=== PATIENT | female | born 1955 | race Caucasian/White ===

== ENCOUNTER 2017-01-23 08:15 | Outpatient (CLI) | payer OTHER | END 2017-01-23 08:16 | disposition home or self-care (01) | DX: M85.9 Disorder of bone density and structure, unspecified (principal); Z78.0 Asymptomatic menopausal state ==

== ENCOUNTER 2017-08-05 10:01 | Outpatient (CLI) | payer OTHER ==
--- NOTE | 2017-08-06 15:34 | Mammography Report ---
DIGITAL SCREENING MAMMOGRAM: 08/05/2017 CLINICAL INDICATION: A 62-year-old nulliparous patient with history of benign cyst excision for scre ening. COMPARISON: 04/2016, 03/2015, 03/2014, 02/2013, 12/2011, 11/2010, 11/2009 TECHNIQUE: Routine CC and MLO projections were obtained of the breasts. FINDINGS: The breasts again demonstrate scattered fibroglandular densities bilaterally. Coarse and punctate, typically benign calcifications are present. No suspicious masses, clustered microcalcific ations, or regions of architectural distortion are identified. IMPRESSION: BENIGN FINDINGS. RECOMMENDATION: Routine annual screening unless otherwise clinically indicated. BIRADS CATEGORY 2 - BENIGN FINDINGS. STANDARD QUALIFYING STATEMENTS 1. This examination was reviewed with the aid of Computer-Aided Detection (CAD). 2. A negative or benign imaging report should not delay biopsy if clinically suspicious findings are present. Consider surgical consultation if warranted. More than 5% of cancers are not identified by i maging. 3. Dense breasts may obscure an underlying neoplasm. JOB #: [id number] EXT JOB #:[id number]
== END 2017-08-05 10:02 | disposition home or self-care (01) ==
LOC: DI 10:01
PROVIDERS: ATTEND Obstetrics & Gynecology
DX: Z12.39 Encounter for other screening for malignant neoplasm of breast (principal)
CPT/HCPCS: 77067

== ENCOUNTER 2017-09-20 04:44 | Emergency (ER) | payer OTHER ==
[2017-09-20 04:55] VITALS: BP 155/78
--- NOTE | 2017-09-20 05:25 | ED Physician Documentation ---
PD HPI ANIMAL BITE - Stated complaint Stated Complaint: DOG BITE - Chief complaint Chief Complaint: Laceration - History obtained from History obtained from: Patient - History of Present Illness Location of injury(ies): Right hand Details of the event: Dog Timing - onset: Enter time (21:00) Timing - details: Abrupt onset Improved by: Rest Worsened by: Moving, Palpating Associated symptoms: Swelling Similar symptoms before: Has not had sx before Recently seen: Not recently seen - Additional information Additional information: patient was her dogs when they were fighting, patient was bitten by one of the dogs to her right second finger. she is right hand dominant. did not present until this time because she did not think the injury warranted emergent evaluation. 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 Neuro: Other - Present Medications Home Medications: Ambulatory Orders Medication Instructions Recorded Confirmed Cholecalciferol (Vitamin D3) 1,000 unit PO DAILY 10/03/15 09/20/17 [Vitamin D3] Amox/Clav 875/125 [Augmentin] 1 each PO Q12H #13 tablet 09/20/17 Hydrocodone/Acetaminophen 1 each PO Q6HR PRN #14 tablet 09/20/17 [Hydrocodone-Acetamin 5-325 mg] LORazepam [Ativan] 1 tab PO PRN PRN 09/20/17 09/20/17 raNITIdine [Zantac] 1 tab PO PRN PRN 09/20/17 09/20/17 - Allergies Allergies/Adverse Reactions: Allergies Allergy/AdvReac Type Severity Reaction Status Date / Time cephalexin monohydrate * Allergy Unknown Rash Verified 09/20/17 04:55 [From Keflex] Sulfa (Sulfonamide Allergy Unknown Rash Verified 09/20/17 04:55 Antibiotics) azithromycin Allergy Rash Verified 09/20/17 04:55 [From Zithromax Z-Antwan] - Social History Does the pt smoke?: No Smoking Status: Never smoker Does the pt drink ETOH?: No Does the pt have substance abuse?: No - Immunizations Immunizations are current?: Yes - POLST Patient has POLST: No PD ED PE NORMAL - Vitals Vital signs reviewed: Yes - General General: Alert and oriented X 3, No acute distress, Well developed/nourished - Neuro Neuro: No motor deficit, No sensory deficit PD ED PE EXPANDED - Extremities Extremities: Tenderness, Swelling, Laceration LISANDRA UE/Hands Visual: 1 - bruising, swelling, tenderness 2 - laceration 3 - laceration Results - Vitals Vitals: Vital Signs - 24 hr 09/20/17 04:50 Temperature 36.8 C Heart Rate 70 Respiratory 18 Rate Blood Pressure 155/78 H O2 Saturation 100 Oxygen O2 Source Room air - Rads (name of study) right second digit xrays Radiology: Prelim report reviewed, See rad report PD MEDICAL DECISION MAKING - ED course Complexity details: reviewed results, re-evaluated patient, considered differential, d/w patient ED course: The edges of the laceration are well approximated without intervention, and do not open easily, widely, or deeply with traction. Considering this, and the delayed presentation to the emergency department, these lacerations were reinforced with Steri-Strips, but not glued nor sutured. Patient thinks she was last updated with tetanus immunization in 2007, but she was given a booster today in the emergency department due to the tetanus-prone nature of a crush injury, as well as animal bite. Departure - Departure Disposition: 01 Home, Self Care Clinical Impression: Dog bite Condition: Good Instructions: ED Bite Animal General Follow-Up: Cl Cuadra MD [Provider Admit Priv/Credential] - (2-3 days for recheck of wound) Prescriptions: Hydrocodone/Acetaminophen [Hydrocodone-Acetamin 5-325 mg] 1 each PO Q6HR PRN # 14 tablet PRN Reason: Pain Amox/Clav 875/125 [Augmentin] 1 each PO Q12H #13 tablet Discharge Date/Time: 09/20/17 07:57
[2017-09-20] MEDS ORDERED: IBUPROFEN 600 MG TABLET PO STA (06:03)
[2017-09-20] MEDS ORDERED: AMOX/CLAV 875 MG/125 MG TABLET PO STA (06:03)
[2017-09-20] MEDS ORDERED: AMOX/CLAV 875 MG/125 MG TABLET PO ONE (06:16)
[2017-09-20] MEDS ORDERED: IBUPROFEN 600 MG TABLET PO ONE (06:16)
--- NOTE | 2017-09-20 06:37 | XRAY Preliminary Report ---
Exam: XR FINGER(S) RT IMPRESSION: No acute bony abnormality. [facility] SITE ID: [id number]
--- NOTE | 2017-09-20 06:40 | XRAY Report ---
EXAM: RIGHT Digit Radiography EXAM DATE: 09/20/2017 06:27 AM. CLINICAL HISTORY: Crush injury (dog bite). COMPARISON: None. TECHNIQUE: 3 views. FINDINGS: Bones: No displaced acute fracture demonstrated. Joints: There is no evidence of dislocation. Soft Tissues: Soft tissue swelling is noted of the index finger. IMPRESSION: No acute bony abnormality. [facility] Referring Provider Line: [phone] SITE ID: [id number]
[2017-09-20] MEDS ORDERED: HYDROcod/ACET 5/325 Prepack 6 PO STA (07:22)
[2017-09-20] MEDS ORDERED: HYDROcod/ACET 5/325 Prepack 6 PO ONE (07:31)
[2017-09-20] MEDS ORDERED: TETANUS/DIPHTHERIA/PERTUSSIS 0.5 ML SYRINGE IM ONE ×2 (07:34→07:41)
== END 2017-09-20 07:57 | disposition home or self-care (01) ==
LOC: ED 04:44
DX: S61.210A Laceration without foreign body of right index finger without damage to nail, initial encounter (principal); W54.0XXA Bitten by dog, initial encounter; Y92.019 Unspecified place in single-family (private) house as the place of occurrence of the external cause; Z23 Encounter for immunization; E11.9 Type 2 diabetes mellitus without complications; M19.90 Unspecified osteoarthritis, unspecified site
CPT/HCPCS: 73140; 90471; 90715; 99283; A9270

== ENCOUNTER 2018-02-08 14:54 | Outpatient (CLI) | payer OTHER ==
--- NOTE | 2018-02-08 19:20 | XRAY Report ---
TWO VIEW RIGHT ELBOW: 02/08/2018 CLINICAL INDICATION: Joint pain. FINDINGS: AP, lateral, and oblique views of the right elbow demonstrate no evidence of fracture or dislocation. The joint spaces are preserved. No effusion is present. IMPRESSION: NORMAL RIGHT ELBOW. TD: 02/08/2018 19:19
== END 2018-02-08 14:55 | disposition home or self-care (01) ==
LOC: DI 14:54
PROVIDERS: ATTEND Internal Medicine
DX: M25.521 Pain in right elbow (principal)

== ENCOUNTER 2018-02-10 08:25 | Outpatient (CLI) | payer OTHER ==
[2018-02-10 13:36] LABS: BASOPHILS % (AUTO) 0.6 %; EOSINOPHILS # (AUTO) 0.4 10^3/uL (0.0-0.7); EOSINOPHILS % (AUTO) 6.2 %; HGB - HEMOGLOBIN 14.4 g/dL (12.0-16.0); LYMPHOCYTES # (AUTO) 2.7 10^3/uL (1.5-3.5); LYMPHOCYTES % (AUTO) 38.2 %; MEAN CORPUSCULAR HEMOGLOBIN 29.3 pg (27.0-31.0); MEAN CORPUSCULAR HGB CONC 33.9 g/dL (32.0-36.0); MEAN CORPUSCULAR VOLUME 86.5 fL (81.0-99.0); MEAN PLATELET VOLUME 8.8 fL (7.9-10.8); MONOCYTES # (AUTO) 0.4 10^3/uL (0.0-1.0); MONOCYTES % (AUTO) 5.8 %; NEUTROPHILS # (AUTO) 3.5 10^3/uL (1.5-6.6); NEUTROPHILS % (AUTO) 49.2 %; PLT - PLATELET COUNT 242 10^3/uL (130-450); RED BLOOD COUNT 4.89 10^6/uL (4.20-5.40); RED CELL DISTRIBUTION WIDTH 12.8 % (12.0-15.0)
[2018-02-10 13:52] LABS: ALBUMIN 4.6 g/dL (3.2-5.5); ALBUMIN/GLOBULIN RATIO 1.8 (1.0-2.2); ALKALINE PHOSPHATASE 51 IU/L (42-121); ALT ALANINE AMINOTRANSFERASE 17 IU/L (10-60); AST ASPARTATE AMINOTRANSFERASE 26 IU/L (10-42); BILIRUBIN,TOTAL 0.4 mg/dL (0.2-1.0); BUN - BLOOD UREA NITROGEN 17 mg/dL (6-20); CARBON DIOXIDE - CO2 27 mmol/L (21-32); CHLORIDE 101 mmol/L (101-111); CHOL/HDL RATIO 3.6 (<4.4); CHOLESTEROL 235 mg/dL; CREATININE 0.7 mg/dL (0.4-1.0); GFR - MDRD 84 (>89); GLUCOSE 119 mg/dL (70-100); HDL CHOLESTEROL 66 mg/dL; LDL CHOLESTEROL,CALCULATED 141 mg/dL; LDL/HDL RATIO 2.1 (<4.4); SODIUM 135 mmol/L (135-145); TOTAL PROTEIN 7.2 g/dL (6.7-8.2); VLDL CHOLESTEROL 28 mg/dL
[2018-02-10 13:57] LABS: HB2 TOTAL 16.1 g/dL; HEMOGLOBIN A1C 0.7 g/dL; HEMOGLOBIN A1C % 6.1 % (4.6-6.2)
[2018-02-11 14:32] LABS: HEPATITIS C ANTIBODY NON-REACTIVE (NON-REACTIVE)
== END 2018-02-10 08:26 | disposition home or self-care (01) ==
LOC: LAB.R 08:25
PROVIDERS: ATTEND Internal Medicine
DX: E78.5 Hyperlipidemia, unspecified (principal); E11.65 Type 2 diabetes mellitus with hyperglycemia; Z79.899 Other long term (current) drug therapy; Z72.89 Other problems related to lifestyle
CPT/HCPCS: 80053; 80061; 83036; 83721; 85025; 86803

== ENCOUNTER 2018-08-03 23:02 | Outpatient (CLI) | payer MEDICARE | END 2018-08-03 23:03 | disposition home or self-care (01) | LOC: LAB.R 23:02 | PROVIDERS: ATTEND Internal Medicine | DX: J11.1 Influenza due to unidentified influenza virus with other respiratory manifestations (principal) | CPT/HCPCS: 87275; 87276 ==

== ENCOUNTER 2018-09-17 10:10 | Outpatient (CLI) | payer MEDICARE ==
[2018-09-17 12:55] LABS: HB2 TOTAL 15.9 g/dL; HEMOGLOBIN A1C 0.75 g/dL; HEMOGLOBIN A1C % 6.5 % (4.6-6.2)
== END 2018-09-17 23:59 ==
LOC: LAB.R 10:10
PROVIDERS: ATTEND Internal Medicine
DX: E88.81 Metabolic syndrome and other insulin resistance (principal)
CPT/HCPCS: 83036

== ENCOUNTER 2018-11-29 08:00 | Outpatient (CLI) | payer MEDICARE | END 2018-11-29 23:59 | disposition home or self-care (01) | LOC: LAB.R 08:00 | PROVIDERS: ATTEND Physician Assistant Medical | DX: R50.9 Fever, unspecified (principal); R05 Cough | CPT/HCPCS: 87275; 87276 ==

== ENCOUNTER 2018-11-29 11:32 | Outpatient (CLI) | payer MEDICARE ==
--- NOTE | 2018-11-29 12:52 | XRAY Report ---
Reason: COUGH Procedure Date: 11/29/2018 Accession Number: [id number] / [id number] Procedure: XR - Chest 2 View X-Ray CPT Code: 82181 FULL RESULT: EXAM: CHEST RADIOGRAPHY EXAM DATE: 11/29/2018 11:46 AM. CLINICAL HISTORY: COUGH. COMPARISON: XR CHEST PA AND LAT 12/06/2007 2:42 PM. TECHNIQUE: 2 views. FINDINGS: Lungs/Pleura: Minimal left lower lobe opacity partly linear in appearance. No vascular congestion. No pneumothorax. No pleural effusions. Mediastinum: Heart size is normal. Aorta is tortuous. Other: Degenerative changes of the thoracic spine. IMPRESSION: 1. Minimal left lower lobe partly linear opacity which may represent a small area of atelectasis versus early consolidation. [facility]
== END 2018-11-29 11:33 | disposition home or self-care (01) ==
LOC: DI 11:32
PROVIDERS: ATTEND Physician Assistant Medical
DX: R05 Cough (principal); R50.9 Fever, unspecified
CPT/HCPCS: 71046; 87275; 87276

== ENCOUNTER 2019-03-16 07:55 | Outpatient (CLI) | payer MEDICARE ==
--- NOTE | 2019-03-16 11:32 | Mammography Report ---
Reason: PREVENTIVE CARE Procedure Date: 03/16/2019 Accession Number: [id number] / [id number] Procedure: ZACH - Screening Mammo w/Sanjeev CPT Code: FULL RESULT: EXAM: Screening Mammo w/Sanjeev DATE: 03/16/2019 8:24 AM CLINICAL HISTORY: Routine screening TECHNIQUE: (B) - Bilateral CC and MLO views were obtained. COMPARISON: 08/05/2017, 05/16/2016, 04/02/2015 and 03/21/2014. PARENCHYMAL PATTERN: (A) - The breasts demonstrate scattered fibroglandular densities bilaterally. FINDINGS: No significant interval change. There are no suspicious masses, calcifications, or areas of distortion. IMPRESSION: Negative examination. BI-RADS category 1. RECOMMENDATION: (ANNUAL) - Recommend routine annual screening mammography. BI-RADS CATEGORY: (1) - Negative. STANDARD QUALIFYING STATEMENTS: 1. This examination was not reviewed with the aid of Computer-Aided Detection (CAD). 2. A negative or benign imaging report should not preclude biopsy if clinically suspicious findings are present. 3. Dense breasts may obscure an underlying neoplasm. 4. This examination was reviewed with the aid of 3D breast imaging (tomosynthesis).
== END 2019-03-16 07:56 | disposition home or self-care (01) ==
LOC: DI 07:55
PROVIDERS: ATTEND Registered Nurse
DX: Z12.31 Encounter for screening mammogram for malignant neoplasm of breast (principal)
CPT/HCPCS: 77063; 77067

== ENCOUNTER 2019-03-16 07:56 | Outpatient (CLI) | payer MEDICARE ==
--- NOTE | 2019-03-16 18:31 | Ultrasound Report ---
Reason: PELVIC PAIN Procedure Date: 03/16/2019 Accession Number: [id number] / [id number] Procedure: US - Pelvic w/Transvaginal CPT Code: FULL RESULT: EXAM: PELVIC ULTRASOUND EXAM DATE: 03/16/2019 09:11 AM. CLINICAL HISTORY: PELVIC PAIN. COMPARISON: None. TECHNIQUE: Realtime transabdominal pelvic scan performed to identify the uterus and adnexa and as an overview of other pelvic structures, followed by transvaginal scan to provide greater detail of the uterus and adnexa, with static image documentation. FINDINGS: Uterus: Not well seen. Question 5.6 x 3.9 x 4.2 cm size, volume 48 cc. Anteverted position. Masses: Detail not well seen. Fibroids not excluded. Endometrium: Not seen. Right Ovary: 2.3 x 1.2 x 1.7 cm, volume 2.5 cc. Grossly normal echotexture and blood flow, seen only transabdominally.. Left Ovary: Not seen. No adnexal masses. Free Fluid: None. Other: None. IMPRESSION: Limited pelvic ultrasound. The uterus is not well seen. No large masses, free fluid, or abnormal collections identified. If pelvic pain persists consider evaluation by CT or MRI. [facility]
== END 2019-03-16 07:57 | disposition home or self-care (01) ==
LOC: DI 07:56
PROVIDERS: ATTEND Registered Nurse
DX: R10.2 Pelvic and perineal pain (principal)
CPT/HCPCS: 76830; 76856

== ENCOUNTER 2019-04-25 08:25 | Outpatient (CLI) | payer MEDICARE ==
[2019-04-25 08:51] LABS: BASOPHILS # (AUTO) 0.1 10^3/uL (0.0-0.1); BASOPHILS % (AUTO) 1.1 %; EOSINOPHILS # (AUTO) 0.5 10^3/uL (0.0-0.7); EOSINOPHILS % (AUTO) 6.8 %; HGB - HEMOGLOBIN 15.3 g/dL (12.0-16.0); LYMPHOCYTES # (AUTO) 2.4 10^3/uL (1.5-3.5); LYMPHOCYTES % (AUTO) 32.4 %; MEAN CORPUSCULAR HEMOGLOBIN 29.7 pg (27.0-31.0); MEAN CORPUSCULAR VOLUME 89.7 fL (81.0-99.0); MEAN PLATELET VOLUME 9.7 fL (7.9-10.8); MONOCYTES # (AUTO) 0.5 10^3/uL (0.0-1.0); MONOCYTES % (AUTO) 6.5 %; NEUTROPHILS # (AUTO) 3.8 10^3/uL (1.5-6.6); NEUTROPHILS % (AUTO) 52.2 %; PLT - PLATELET COUNT 267 10^3/uL (130-450); RED BLOOD COUNT 5.16 10^6/uL (4.20-5.40); RED CELL DISTRIBUTION WIDTH 12.3 % (12.0-15.0); WHITE BLOOD COUNT 7.3 x10^3/uL (4.8-10.8)
[2019-04-25 09:21] LABS: ALBUMIN 4.1 g/dL (3.2-5.5); ALBUMIN/GLOBULIN RATIO 1.3 (1.0-2.2); ALKALINE PHOSPHATASE 57 IU/L (42-121); ALT ALANINE AMINOTRANSFERASE 19 IU/L (10-60); AST ASPARTATE AMINOTRANSFERASE 21 IU/L (10-42); BILIRUBIN,TOTAL 0.5 mg/dL (0.2-1.0); BUN - BLOOD UREA NITROGEN 16 mg/dL (6-20); CALCIUM 9.4 mg/dL (8.5-10.3); CARBON DIOXIDE - CO2 28 mmol/L (21-32); CHLORIDE 101 mmol/L (101-111); CHOL/HDL RATIO 4.1 (<4.4); CHOLESTEROL 274 mg/dL; CREATININE 0.8 mg/dL (0.4-1.0); GFR - MDRD 72 (>89); GLUCOSE 126 mg/dL (70-100); HDL CHOLESTEROL 67 mg/dL; LDL CHOLESTEROL,CALCULATED 169 mg/dL; LDL/HDL RATIO 2.5 (<4.4); SODIUM 141 mmol/L (135-145); TOTAL PROTEIN 7.3 g/dL (6.7-8.2); VLDL CHOLESTEROL 38 mg/dL
[2019-04-25 09:24] LABS: HB2 TOTAL 15.8 g/dL; HEMOGLOBIN A1C 0.76 g/dL; HEMOGLOBIN A1C % 6.6 % (4.6-6.2)
== END 2019-04-25 08:26 | disposition home or self-care (01) ==
LOC: LAB 08:25
PROVIDERS: ATTEND Nurse Practitioner
DX: Z00.00 Encounter for general adult medical examination without abnormal findings (principal); E78.5 Hyperlipidemia, unspecified; R73.02 Impaired glucose tolerance (oral)
CPT/HCPCS: 36415; 80053; 80061; 83036; 83721; 84443; 85025

== ENCOUNTER 2019-05-12 09:32 | Outpatient (CLI) | payer MEDICARE ==
--- NOTE | 2019-05-12 16:31 | XRAY Report ---
Reason: HEEL PAIN,LEFT Procedure Date: 05/12/2019 Accession Number: [id number] / [id number] Procedure: XRN - Foot 3 View LT CPT Code: FULL RESULT: EXAM: LEFT FOOT RADIOGRAPHY EXAM DATE: 05/12/2019 09:53 AM. CLINICAL HISTORY: HEEL PAIN,LEFT. COMPARISON: None. TECHNIQUE: 3 views. FINDINGS: Bones: No acute fractures or suspicious bone lesions. The visualized calcaneus appears unremarkable. Joints: No subluxations. Hallux valgus of 20 degrees. Soft Tissues: Unremarkable. IMPRESSION: No acute radiographic abnormalities. [facility]
== END 2019-05-12 09:33 | disposition home or self-care (01) ==
LOC: DI.N 09:32
PROVIDERS: ATTEND Family Medicine
DX: M79.672 Pain in left foot (principal)

== ENCOUNTER 2019-05-19 12:15 | Outpatient (CLI) | payer MEDICARE ==
--- NOTE | 2019-05-21 23:37 | MRI Report ---
Reason: PELVIC PAIN Procedure Date: 05/19/2019 Accession Number: [id number] / [id number] Procedure: MRI - Pelvis W/O CPT Code: FULL RESULT: EXAM: MR PELVIS WITHOUT CONTRAST (MR FEMALE PELVIS) EXAM DATE: 05/19/2019 01:20 PM. CLINICAL HISTORY: Pelvic pain. COMPARISON: 03/16/2019 9:10 AM 03/16/2019 8:34 AM. TECHNIQUE: Multiplanar breath-hold T1 and T2 weighted sequences obtained through the pelvis on an MR scanner. No intravenous contrast. FINDINGS: Reproductive Organs: Uterus: The uterus is anteverted and measures 5.6 x 2.9 x 4.1 cm with volume 34.8 cc. The endometrial stripe measures 3 mm. Multiple (at least 12) myomata, including the following 3 largest: 1. Left fundal subserosal, 1.9 x 1.3 x 1.6 cm. 2. Right fundal submucosal, 1.5 x 1.2 x 1.3 cm. 3. Anterior upper uterine body intramural, 1.5 x 1.3 x 1.4 cm. Right Ovary: The right ovary measures 2.1 x 1.3 x 1.8 cm with volume 2.6 cc. Contain several subcentimeter cysts/follicles, the largest 0.8 cm. Left Ovary: The left ovary measures 1.9 x 1.2 x 1.7 cm with volume 2.0 cc. Contains few tiny cysts/follicles, the largest 0.3 cm. Peritoneal Cavity/Bowel The visualized portions of the small bowel, colon, and rectum appear normal. No free fluid or adenopathy. Bladder: Normal. Bones: Grade 1 anterolisthesis of L5 on S1. Other: Small fat-containing umbilical hernia. IMPRESSION: 1. Multiple uterine myomata, as detailed above. 3. Tiny subcentimeter cysts/follicles in the bilateral ovaries. No routine follow-up imaging is needed per ACR white paper. [facility]
== END 2019-05-19 12:16 | disposition home or self-care (01) ==
LOC: DI 12:15
PROVIDERS: ATTEND Nurse Practitioner Obstetrics & Gynecology
DX: D25.0 Submucous leiomyoma of uterus (principal); D25.1 Intramural leiomyoma of uterus; D25.2 Subserosal leiomyoma of uterus; N83.202 Unspecified ovarian cyst, left side; N83.201 Unspecified ovarian cyst, right side
CPT/HCPCS: 72195

== ENCOUNTER 2019-05-31 12:22 | Outpatient (CLI) | payer MEDICARE | END 2019-05-31 12:23 | disposition home or self-care (01) | LOC: LAB 12:22 | PROVIDERS: ATTEND Obstetrics & Gynecology | DX: R10.2 Pelvic and perineal pain (principal) | CPT/HCPCS: 36415; 86304 ==

== ENCOUNTER 2019-07-29 08:37 | Outpatient (CLI) | payer MEDICARE ==
[2019-07-29 09:22] LABS: HB2 TOTAL 16.2 g/dL; HEMOGLOBIN A1C 0.73 g/dL; HEMOGLOBIN A1C % 6.3 % (4.6-6.2)
[2019-07-29 09:39] LABS: ALBUMIN 4.6 g/dL (3.2-5.5); ALBUMIN/GLOBULIN RATIO 1.5 (1.0-2.2); ALKALINE PHOSPHATASE 56 IU/L (42-121); ALT ALANINE AMINOTRANSFERASE 23 IU/L (10-60); AST ASPARTATE AMINOTRANSFERASE 24 IU/L (10-42); BILIRUBIN,TOTAL 0.9 mg/dL (0.2-1.0); BUN - BLOOD UREA NITROGEN 10 mg/dL (6-20); CALCIUM 9.4 mg/dL (8.5-10.3); CARBON DIOXIDE - CO2 30 mmol/L (21-32); CHLORIDE 99 mmol/L (101-111); CHOL/HDL RATIO 2.6 (<4.4); CHOLESTEROL 167 mg/dL; CREATININE 0.7 mg/dL (0.4-1.0); GFR - MDRD 84 (>89); GLUCOSE 137 mg/dL (70-100); HDL CHOLESTEROL 64 mg/dL; LDL CHOLESTEROL,CALCULATED 67 mg/dL; SODIUM 140 mmol/L (135-145); TOTAL PROTEIN 7.6 g/dL (6.7-8.2); VLDL CHOLESTEROL 36 mg/dL
== END 2019-07-29 08:38 | disposition home or self-care (01) ==
LOC: LAB 08:37
PROVIDERS: ATTEND Nurse Practitioner
DX: E78.5 Hyperlipidemia, unspecified (principal); R73.02 Impaired glucose tolerance (oral)
CPT/HCPCS: 36415; 80053; 80061; 83036; 83721

== ENCOUNTER 2020-04-16 08:00 | Outpatient (CLI) | payer MEDICARE | END 2020-04-16 23:59 | disposition home or self-care (01) | LOC: LAB 08:00 | PROVIDERS: ATTEND Family Medicine | DX: Z11.59 Encounter for screening for other viral diseases (principal) | CPT/HCPCS: 81599 ==

== ENCOUNTER 2020-06-29 09:48 | Outpatient (CLI) | payer MEDICARE ==
[2020-06-29 10:06] LABS: BASOPHILS # (AUTO) 0.1 10^3/uL (0.0-0.1); BASOPHILS % (AUTO) 1.2 %; EOSINOPHILS # (AUTO) 0.7 10^3/uL (0.0-0.7); EOSINOPHILS % (AUTO) 9.3 %; HGB - HEMOGLOBIN 14.5 g/dL (12.0-16.0); LYMPHOCYTES # (AUTO) 2.4 10^3/uL (1.5-3.5); LYMPHOCYTES % (AUTO) 31.6 %; MEAN CORPUSCULAR HEMOGLOBIN 30.1 pg (27.0-31.0); MEAN CORPUSCULAR HGB CONC 33.4 g/dL (32.0-36.0); MEAN PLATELET VOLUME 9.8 fL (7.9-10.8); MONOCYTES # (AUTO) 0.5 10^3/uL (0.0-1.0); MONOCYTES % (AUTO) 7.1 %; NEUTROPHILS # (AUTO) 3.8 10^3/uL (1.5-6.6); NEUTROPHILS % (AUTO) 50.1 %; PLT - PLATELET COUNT 254 10^3/uL (130-450); RED BLOOD COUNT 4.82 10^6/uL (4.20-5.40); RED CELL DISTRIBUTION WIDTH 12.3 % (12.0-15.0); WHITE BLOOD COUNT 7.5 x10^3/uL (4.8-10.8)
[2020-06-29 10:28] LABS: ALBUMIN 4.4 g/dL (3.2-5.5); ALBUMIN/GLOBULIN RATIO 1.6 (1.0-2.2); ALKALINE PHOSPHATASE 49 IU/L (42-121); ALT ALANINE AMINOTRANSFERASE 24 IU/L (10-60); AST ASPARTATE AMINOTRANSFERASE 25 IU/L (10-42); BILIRUBIN,TOTAL 0.7 mg/dL (0.2-1.0); BUN - BLOOD UREA NITROGEN 23 mg/dL (6-20); CALCIUM 9.5 mg/dL (8.5-10.3); CARBON DIOXIDE - CO2 28 mmol/L (21-32); CHLORIDE 99 mmol/L (101-111); CHOL/HDL RATIO 2.2 (<4.4); CHOLESTEROL 166 mg/dL; CREATININE 0.7 mg/dL (0.4-1.0); GLUCOSE 127 mg/dL (70-100); HDL CHOLESTEROL 74 mg/dL; LDL CHOLESTEROL,CALCULATED 66 mg/dL; LDL/HDL RATIO 0.9 (<4.4); SODIUM 136 mmol/L (135-145); TOTAL PROTEIN 7.2 g/dL (6.7-8.2); VLDL CHOLESTEROL 26 mg/dL
[2020-06-29 12:40] LABS: HEMOGLOBIN A1c% 6.8 % (4.27-6.07)
== END 2020-06-29 09:49 | disposition home or self-care (01) ==
LOC: LAB 09:48
PROVIDERS: ATTEND Nurse Practitioner
DX: F41.9 Anxiety disorder, unspecified (principal); E11.9 Type 2 diabetes mellitus without complications; E78.5 Hyperlipidemia, unspecified; K21.9 Gastro-esophageal reflux disease without esophagitis
CPT/HCPCS: 36415; 80053; 80061; 82043; 83036; 83721; 84443; 85025

== ENCOUNTER 2020-10-15 12:01 | Outpatient (CLI) | payer MEDICARE | END 2020-10-15 23:59 | disposition home or self-care (01) | LOC: COV 12:01 | PROVIDERS: ATTEND Family Medicine | DX: R05 Cough (principal); J02.9 Acute pharyngitis, unspecified; R09.81 Nasal congestion ==

== ENCOUNTER 2020-12-17 07:52 | Outpatient (CLI) | payer MEDICARE ==
[2020-12-17 08:20] LABS: CALCIUM 9.8 mg/dL (8.5-10.3); CREATININE 0.7 mg/dL (0.4-1.0); POTASSIUM 4.1 mmol/L (3.5-5.0)
[2020-12-17 10:12] LABS: ESTIMATED AVERAGE GLUCOSE 137 mg/dL (70-100); HEMOGLOBIN A1c% 6.4 % (4.27-6.07)
== END 2020-12-17 07:53 | disposition home or self-care (01) ==
LOC: LAB 07:52
PROVIDERS: ATTEND Nurse Practitioner
DX: E11.9 Type 2 diabetes mellitus without complications (principal)
CPT/HCPCS: 36415; 80048; 83036

== ENCOUNTER 2020-12-18 14:58 | Outpatient (CLI) | payer MEDICARE ==
--- NOTE | 2020-12-18 18:12 | Ultrasound Report ---
PROCEDURE: Pelvic w/Transvaginal INDICATIONS: POSTMENOPAUSAL BLEEDING TECHNIQUE: Real-time scanning was performed of the pelvic organs, with image documentation. Additional endovagi nal scanning was necessary due to incomplete visualization of the adnexal and endometrial structures by transabdominal scanning. COMPARISON: Prior pelvic ultrasound dated 03/16/2019.. FINDINGS: No pathologic free abdominal or pelvic fluid. Uterus: Uterus is normal in size at 6.0 x 2.1 x 3.2 cm. The endometrium is suboptimally visualized and cannot be accurately assessed. Small endometrial fluid present. There are 2 intramural fibroids, largest measuring up to 1.9 cm. Ovaries: The right ovary is grossly normal measuring 1.7 x 0.9 x 1.0 cm and the left ovary is not vi sualized. No adnexal masses seen. IMPRESSION: 1. Endometrial complex is suboptimally visualized and cannot be accurately assessed. If indicated, pr e and postcontrast gynecologic protocol MRI could be performed for further assessment. 2. Small intramural fibroids, largest measuring 1.9 cm. 3. The ovaries are not definitively identified and no adnexal masses are seen. Reviewed by: BINA Sharp on 12/18/2020 6:11 PM PST Approved by: Bella Guzman MD on 12/18/2020 6:11 PM PST Station ID: [id number]
== END 2020-12-18 14:59 | disposition home or self-care (01) ==
LOC: DI 14:58
PROVIDERS: ATTEND Obstetrics & Gynecology
DX: N95.0 Postmenopausal bleeding (principal); D25.1 Intramural leiomyoma of uterus

== ENCOUNTER 2021-02-08 15:05 | Outpatient (CLI) | payer MEDICARE | END 2021-02-08 15:06 | disposition home or self-care (01) | LOC: COV 15:05 | PROVIDERS: ATTEND Obstetrics & Gynecology | DX: Z01.812 Encounter for preprocedural laboratory examination (principal); N95.0 Postmenopausal bleeding; E11.9 Type 2 diabetes mellitus without complications; Z20.822 Contact with and (suspected) exposure to COVID-19 ==

== ENCOUNTER 2021-02-13 06:38 | Day surgery (SDC) | payer MEDICARE ==
[~2021-02-13 06:38] MED LIST: ACETAMINOPHEN 1,000 MG/100 ML 100 ML IV ONE; CELECOXIB 100 MG CAPSULE PO ONE; GABAPENTIN 400 MG CAPSULE ONE; metroNIDAZOLE 500 MG/100 ML 500 MG/100 ML BAG ONE
[2021-02-13] MEDS ORDERED: LACTATED RINGERS 1,000 ML IV ONE (06:40)
[2021-02-13] MEDS ORDERED: BUPIVACAINE 0.5% PF 30 ML VIAL ONE (07:10)
[2021-02-13] MEDS ORDERED: SILVER NITRATE APPLICATOR TOP ONE (07:11)
[2021-02-13] MEDS ORDERED: LIDOCAINE MPF 2%-EPI 1:200000 20 ML VIAL ONE (07:16)
[2021-02-13] MEDS ORDERED: ONDANSETRON 4 MG/2 ML VIAL IVP PRN ×2 (07:33→08:47)
[2021-02-13] MEDS ORDERED: ePHEDrine 50 MG/ML VIAL IVP PRN (07:33)
[2021-02-13] MEDS ORDERED: HYDROmorphone 0.5 MG/0.5 ML SYRINGE IVP PRN (07:33)
[2021-02-13] MEDS ORDERED: fentaNYL 100 MCG/2 ML VIAL IVP PRN (07:33)
[2021-02-13] MEDS ORDERED: METOCLOPRAMIDE 10 MG/2 ML VIAL IVP PRN (07:33)
[2021-02-13] MEDS ORDERED: NALOXONE 0.4 MG/ML VIAL IVP PRN (07:33)
[2021-02-13] MEDS ORDERED: ATROPINE ABBOJECT 1 MG/10 ML SYRINGE IVP PRN (07:33)
[2021-02-13] MEDS ORDERED: MORPHINE 2 MG/ML CARPUJECT IVP PRN (07:33)
--- NOTE | 2021-02-13 07:33 | ANESTHESIA ---
Pre-Anesthesia VS, & Labs - Diagnosis post-menopausal bleeding - Procedure myosure hysteroscopy, D&C Vital Signs: Temp Pulse Resp BP Pulse Ox 36.2 C L 76 16 141/81 H 96 02/13/21 06:45 02/13/21 06:45 02/13/21 06:45 02/13/21 06:45 02/13/21 06:45 Height: 5 ft 4 in Weight (kg): 81 kg Body Mass Index: 30.6 BMI Classification: Obese - NPO Last Fluid Intake: sips w/meds this am H2O - Is Patient ?: No - Lab Results Current Lab Results: Laboratory Tests 02/13/21 07:05: POC Whole Bld Glucose 126 H Lab results reviewed: Yes Home Medications and Allergies Home Medications: Ambulatory Orders Atorvastatin [Lipitor] 20 mg PO QPM 02/07/21 Calcium Carbonate [Calcium] 600 mg PO DAILY 02/07/21 Escitalopram Oxalate [Lexapro] 10 mg PO DAILY 02/07/21 Famotidine [Pepcid] 20 mg PO DAILY 02/07/21 Meloxicam [Mobic] 1 tablet PO DAILY 02/07/21 Metformin HCl [Fortamet] 500 mg PO DAILY 02/07/21 Multivitamin 1 each PO DAILY 02/07/21 Nortriptyline [Pamelor] 25 mg PO QPM 02/07/21 Cholecalciferol (Vitamin D3) [Vitamin D3] 1,000 unit PO DAILY 10/03/15 LORazepam [Ativan] 1 tab PO PRN PRN 09/20/17 Atorvastatin [Lipitor] 20 mg PO QPM 02/07/21 Calcium Carbonate [Calcium] 600 mg PO DAILY 02/07/21 Escitalopram Oxalate [Lexapro] 10 mg PO DAILY 02/07/21 Famotidine [Pepcid] 20 mg PO DAILY 02/07/21 Meloxicam [Mobic] 1 tablet PO DAILY 02/07/21 Metformin HCl [Fortamet] 500 mg PO DAILY 02/07/21 Multivitamin 1 each PO DAILY 02/07/21 Nortriptyline [Pamelor] 25 mg PO QPM 02/07/21 Allergies/Adverse Reactions: Allergies Allergy/AdvReac Type Severity Reaction Status Date / Time cephalexin monohydrate * Allergy Unknown Rash Verified 09/20/17 04:55 [From Keflex] Sulfa (Sulfonamide Allergy Unknown Rash Verified 09/20/17 04:55 Antibiotics) azithromycin Allergy Rash Verified 09/20/17 04:55 [From Zithromax Z-Antwan] Anes History & Medical History - Anesthetic History Anesthesia Complications: reports: No previous complications Family history of Anesthesia Complications: Denies Family history of Malignant Hyperthermia: Denies - Medical History Cardiovascular: reports: High cholesterol Pulmonary: reports: None Gastrointestinal: reports: Chronic constipation Urinary: reports: None Musculoskeletal: reports: Osteoarthritis Endocrine/Autoimmune: reports: Type 2 diabetes Skin: reports: Other Smoking Status: Never smoker - Surgical History General: reports: Colonoscopy Gynecologic: reports: Other Neurologic: reports: Other Orthopedic: reports: Spine surgery Exam General: Alert, Oriented x3, Cooperative Dental: WNL Mouth Openin Fingerbreadth Neck Mobility: Normal Mallampati classification: I Thyromental Distance: 4-6 cm Respiratory: Lungs clear, Normal breath sounds, No respiratory distress Cardiovascular: Regular rate Neurological: Normal speech Mental/Cognitive Status: Alert/Oriented X3, Normal for patient Cognitive Status: Within normal limits Plan Anesthesia Type: General (backup), MAC Consent for Procedure(s) Verified and Reviewed: Yes Code Status: Attempt Resuscitation ASA classification: 2-Mild systemic disease Is this case an emergency?: No
[2021-02-13] MEDS ORDERED: MIDAZOLAM 2 MG/2 ML VIAL ONE (07:37)
[2021-02-13] MEDS ORDERED: LIDOCAINE-MPF 2% 5 ML VIAL ONE (07:38)
[2021-02-13] MEDS ORDERED: ONDANSETRON 4 MG/2 ML VIAL ONE ×2 (07:38→10:50)
[2021-02-13] MEDS ORDERED: PROPOFOL 200 MG/20 ML VIAL IVP ONE (07:38)
[2021-02-13] MEDS ORDERED: DEXAMETHASONE 4 MG/ML VIAL ONE (07:38)
[2021-02-13] MEDS ORDERED: fentaNYL 100 MCG/2 ML VIAL ONE (07:41)
[2021-02-13] MEDS ORDERED: BUPIVACAINE 0.5%-EPI 1:200000 PF 30 ML VIAL ONE (07:54)
[2021-02-13] MEDS ORDERED: LACTATED RINGERS 1,000 ML IV SCH (08:00)
[2021-02-13] MEDS ORDERED: BUPIVACAINE 0.25%-EPI 1:200000 PF 30 ML VIAL SUBQ ONE ×2 (08:06)
--- NOTE | 2021-02-13 08:44 | OPERATIVE REPORT ---
Operative Report - General Procedure Date: 02/13/21 Planned Procedure: Hysterscopy with D&C Pre-Op Diagnosis: Post menopausel bleeding Procedure Performed: Unsuccessful Dilatation - Procedure Note Primary Surgeon: Damien Woo MD Anesthesia Provider: Yessica Riggs CRNA Anesthesia Technique: General LMA IV Fluids (mL): 600 Estimated Blood Loss (mL): 1 Urine Output (mL): 60 Complications: cervical occlusion secondary to scar tissue from LEEP
[2021-02-13] MEDS ORDERED: oxyCODONE 5 MG TABLET PO PRN (08:47)
[2021-02-13] MEDS ORDERED: HYDROcod/ACETAM 5/325 MG TABLET PO PRN (08:47)
[2021-02-13] MEDS ORDERED: LORazepam 2 MG/ML VIAL IVP PRN (08:47)
[2021-02-13] MEDS ORDERED: LACTATED RINGERS 400 ML IV ONE (08:50)
--- NOTE | 2021-02-13 09:58 | ANESTHESIA POST OP EVALUATION ---
Anesthesia Post Eval - Post Anesthesia Eval Vitals: Last Vital Signs Temp 36.6 C 02/13/21 09:02 Pulse 77 02/13/21 09:02 Resp 16 02/13/21 09:02 BP 130/71 02/13/21 09:02 Pulse Ox 96 02/13/21 09:02 CV Function Including HR & BP: Stable Pain Control: Satisfactory Nausea & Vomiting: Negative Mental Status: Baseline Respiratory Status: Airway Patent Hydration Status: Satisfactory Anesthesia Complications: None
--- NOTE | 2021-02-13 10:26 | OPERATIVE REPORT ---
DATE OF SERVICE: 02/13/2021 Physician: Damien Woo MD PREOPERATIVE DIAGNOSIS: Postmenopausal bleeding. POSTOPERATIVE DIAGNOSES: Postmenopausal bleeding. PROCEDURE PLANNED: Hysteroscopy with MyoSure. PROCEDURE PERFORMED: None. SURGEON: Damien Woo MD. ANESTHESIA: Yessica Riggs CRNA. ANESTHETIC: General via LMA. IV FLUIDS: 600 mL. ESTIMATED BLOOD LOSS: 1 mL. URINE OUTPUT: 60 mL. FINDINGS: Pelvic examination revealed the uterus was felt to probably be retroverted. Upon placing the speculum examination, the cervix was visualized, but the external os was unable to be identified despite multiple attempts with a sound as well as lacrimal probe. DESCRIPTION OF PROCEDURE: Following adequate general anesthesia via LMA, patient was placed in dorsal lithotomy position. She was then prepped and draped in the usual fashion. A timeout was performed, at which concerns were addressed. The possibility of the cervical adhesions was mentioned. At this point, the procedure was commenced. A speculum was placed in the vagina. The cervix was visualized, grasped with a single-tooth tenaculum. The cervix resided very flat against the apex of the vagina. A paracervical block was placed utilizing 10 mL of 0.5% Marcaine with epinephrine. The cervical os was attempted to be visualized and seen, but because of scar tissue of previous LEEP procedure this was not able to be identified. A uterine dilator was attempted. This was unsuccessful. A lacrimal probe was also attempted and was unsuccessful. In view of the fact of the high probability of performing a false tract, it was decided to terminate the procedure. The patient tolerated the anesthesia well. She was taken to recovery in stable condition. Sponge and needle counts were correct. TD: 02/13/2021 10:25 ANGELITO
[2021-02-13 11:57] VITALS: BP 103/81
== END 2021-02-13 06:39 | disposition home or self-care (01) ==
LOC: SDS 06:38
PROVIDERS: ATTEND Obstetrics & Gynecology
DX: N95.0 Postmenopausal bleeding (principal); Z53.8 Procedure and treatment not carried out for other reasons; E11.42 Type 2 diabetes mellitus with diabetic polyneuropathy; I10 Essential (primary) hypertension; L90.0 Lichen sclerosus et atrophicus; F32.9 Major depressive disorder, single episode, unspecified; F41.9 Anxiety disorder, unspecified; E66.9 Obesity, unspecified; Z68.30 Body mass index [BMI] 30.0-30.9, adult; M85.80 Other specified disorders of bone density and structure, unspecified site; M43.17 Spondylolisthesis, lumbosacral region; Z79.84 Long term (current) use of oral hypoglycemic drugs; Z79.899 Other long term (current) drug therapy
CPT/HCPCS: 58563; A9270; J0131; J7120

== ENCOUNTER 2021-05-01 09:05 | Outpatient (CLI) | payer MEDICARE ==
[2021-05-01 09:44] LABS: CREATININE 0.6 mg/dL (0.4-1.0)
[2021-05-01] MEDS ORDERED: GADOBUTROL 10 MMOL/10 ML VIAL ONE (10:11)
--- NOTE | 2021-05-01 12:27 | MRI Report ---
PROCEDURE: Pelvis W/WO INDICATIONS: POSTMENOPAUSAL BLEEDING CONTRAST: IV CONTRAST: Gadavist ml: 8.0 TECHNIQUE: Coronal ultra fast SE, sagittal breath-hold T2 FSE; axial T1 FSE with and without fat saturation thro ugh the pelvis. Optional long- and short-axis uterine nonbreath-hold T2 FSE through the uterus. Sag ittal or axial dynamic ultra fast GE during administration of contrast. Post-contrast axial or coron al ultra fast GE / 2-D spoiled GE with fat saturation from the iliac crests to the symphysis. Option al diffusion weighted imaging and ADC may be performed. COMPARISON: Pelvic ultrasound 12/18/2020 FINDINGS: Image quality: Excellent. Uterus: Uterus is anteverted and retroflexed. There are several T2 hypointense myometrial masses ran ging in size from 8 mm to 1.9 cm. One fibroid located in the right fundal myometrium is submucosal in position, distorting the endometrium. There is a pedunculated fibroid arising from the posterior wal l. Endometrium is normal in thickness. Junctional zone is thin. Many of the fibroids are hypoenhanci ng. There is normal myometrial enhancement. Adnexa: Both ovaries are normal in size for postmenopausal female. There are 2 subcentimeter follicl es on the right ovary. No suspicious solid or cystic lesions. Urinary system: Bladder wall is normal in thickness. Distal ureters are non distended. Urethra ana ears normal in morphology. Nodes and vessels: No pelvic or inguinal adenopathy by size criteria. Iliac vessels are normal in s ize. Bowel and peritoneum: No pathologic free pelvic fluid. Inferior colon and small bowel loops are nor mal in caliber. Soft tissues: No inguinal hernias. No findings of pelvic floor incompetence in the absence of provo cation. Bones: Marrow demonstrates normal overall signal. IMPRESSION: 1. Submucosal fibroid in the right fundus may contribute to postmenopausal bleeding. 2. Several small submucosal, subserosal, myometrial, and pedunculated uterine fibroids without enlarg ement of the uterus. 3. Normal thickness endometrium. 4. Normal Ovaries. Reviewed by: Lesley Muse MD on 05/01/2021 12:25 PM PDT Approved by: Lesley Muse MD on 05/01/2021 12:25 PM PDT Station ID: [id number]
[2021-05-01] MEDS ORDERED: GADOBUTROL 10 MMOL/10 ML VIAL IVP ONE (17:41)
--- NOTE | 2021-05-07 09:23 | PROVIDER PROGRESS NOTE ---
Subjective - Prog Note Date Prog Note Date: 05/01/21 Prog Note Time: 08:00 - Subjective Pt reports feeling: No change (Pt needs creatinene for MRI as she will need contrast.) Objective - Lab Results Fish Bones: 05/01/21 09:28
== END 2021-05-01 09:06 | disposition home or self-care (01) ==
LOC: DI 09:05
PROVIDERS: ATTEND Obstetrics & Gynecology
DX: Z01.812 Encounter for preprocedural laboratory examination (principal); D25.0 Submucous leiomyoma of uterus; D25.2 Subserosal leiomyoma of uterus; D25.9 Leiomyoma of uterus, unspecified
CPT/HCPCS: 36415; 72197; 82565; A9585

== ENCOUNTER 2021-05-10 08:37 | Outpatient (CLI) | payer MEDICARE ==
--- NOTE | 2021-05-13 14:00 | Mammography Report ---
BILATERAL DIGITAL SCREENING MAMMOGRAM 3D/2D: 05/10/2021 CLINICAL: Routine screening. Comparison is made to exams dated: 03/16/2019 mammogram, 08/05/2017 mammogram, 05/16/2016 mammogram, a nd 04/02/2015 mammogram - [facility]. There are scattered fibroglandular elements i n both breasts. No significant masses, calcifications, or other findings are seen in either breast. There has been no significant interval change. IMPRESSION: NEGATIVE There is no mammographic evidence of malignancy. A 1 year screening mammogram is recommended. This exam was interpreted at Station ID: [id number]. NOTE: For mammograms, a report in lay terms will be sent to the patient. Approximately 15% of breast malignancies will not be visualized mammographically. In the management of a palpable breast mass, a negative mammogram must not discourage biopsy of a clinically suspicious lesion. Electronically Signed By: Ari Greenwood M.D. aty/penrad:05/10/2021 10:37:59 ACR BI-RADS Category 1: Negative 3341F PARENCHYMAL PATTERN: (A) - The breast(s) demonstrate(s) scattered fibroglandular densities. BI-RADS CATEGORY: (1) - 1 RECOMMENDATION: (ANNUAL) - Recommend routine annual screening mammography. [id number] 1 year screening LATERALITY: (B)
== END 2021-05-10 08:38 | disposition home or self-care (01) ==
LOC: DI 08:37
PROVIDERS: ATTEND Internal Medicine
DX: Z12.31 Encounter for screening mammogram for malignant neoplasm of breast (principal)

== ENCOUNTER 2021-05-15 08:38 | Outpatient (CLI) | payer MEDICARE ==
--- NOTE | 2021-05-15 10:25 | DEXA Report ---
PROCEDURE: Dexa Spine and/or Hip INDICATIONS: POST MENOPAUSAL TECHNIQUE: Dual energy x-ray absorptiometry (DXA) was performed on a Sifteo System. Regions measur ed are the AP Spine, femoral neck, and if needed forearm. COMPARISON: 01/23/2017 FINDINGS: Lumbar Spine: Bone Mineral Density 1.174 g/cm/cm,T score 0.0, normal, change from previous 3.4%, significant Left Hip: Bone Mineral Density 1.110 g/cm/cm,T score 0.8, normal, change from previous -2.1% Left Femoral Neck: Bone Mineral Density 1.068 g/cm/cm, T score 0.2, normal (T score greater or equal to -1.0: NORMAL) (T score from -1.1 to -2.4: OSTEOPENIA) (T score less than or equal to -2.5 to: OSTEOPOROSIS) Impression: 1. Significant interval increase in lumbar spine bone mineral density compared to the prior study. 2. Normal bone mineral density. 3. No elevated fracture risk. Patients with diagnosis of osteoporosis or osteopenia should have regular bone mineral density assess ment. For those eligible for Medicare, routine testing is allowed once every 2 years. Testing frequ ency can be increased for patients who have rapidly progressing disease or for those who are receivin g medical therapy to restore bone mass. Reviewed by: Lesley Muse MD on 05/15/2021 10:23 AM PDT Approved by: Lesley Msue MD on 05/15/2021 10:23 AM PDT Station ID: [id number]
== END 2021-05-15 08:39 | disposition home or self-care (01) ==
LOC: DI 08:38
PROVIDERS: ATTEND Internal Medicine
DX: Z78.0 Asymptomatic menopausal state (principal)

== ENCOUNTER 2021-05-22 07:42 | Outpatient (CLI) | payer MEDICARE ==
[2021-05-22 08:09] LABS: BASOPHILS # (AUTO) 0.1 10^3/uL (0.0-0.1); BASOPHILS % (AUTO) 0.9 %; EOSINOPHILS # (AUTO) 0.7 10^3/uL (0.0-0.7); EOSINOPHILS % (AUTO) 9.4 %; HCT - HEMATOCRIT 45.1 % (37.0-47.0); HGB - HEMOGLOBIN 14.9 g/dL (12.0-16.0); LYMPHOCYTES # (AUTO) 2.3 10^3/uL (1.5-3.5); LYMPHOCYTES % (AUTO) 30.3 %; MEAN CORPUSCULAR HEMOGLOBIN 29.9 pg (27.0-31.0); MEAN CORPUSCULAR VOLUME 90.4 fL (81.0-99.0); MEAN PLATELET VOLUME 9.8 fL (7.9-10.8); MONOCYTES # (AUTO) 0.4 10^3/uL (0.0-1.0); MONOCYTES % (AUTO) 5.7 %; NEUTROPHILS % (AUTO) 52.9 %; PLT - PLATELET COUNT 273 10^3/uL (130-450); RED BLOOD COUNT 4.99 10^6/uL (4.20-5.40); RED CELL DISTRIBUTION WIDTH 12.6 % (12.0-15.0); WHITE BLOOD COUNT 7.6 x10^3/uL (4.8-10.8)
[2021-05-22 08:23] LABS: CREATININE,URINE 18.4 mg/dL
[2021-05-22 08:25] LABS: ALBUMIN 4.5 g/dL (3.2-5.5); ALBUMIN/GLOBULIN RATIO 1.6 (1.0-2.2); ALKALINE PHOSPHATASE 58 IU/L (42-121); ALT ALANINE AMINOTRANSFERASE 24 IU/L (10-60); AST ASPARTATE AMINOTRANSFERASE 23 IU/L (10-42); BILIRUBIN,TOTAL 0.9 mg/dL (0.2-1.0); BUN - BLOOD UREA NITROGEN 20 mg/dL (6-20); CALCIUM 9.5 mg/dL (8.5-10.3); CARBON DIOXIDE - CO2 28 mmol/L (21-32); CHLORIDE 98 mmol/L (101-111); CHOL/HDL RATIO 2.8 (<4.4); CHOLESTEROL 213 mg/dL; CREATININE 0.8 mg/dL (0.4-1.0); GFR - MDRD 71 (>89); GLUCOSE 135 mg/dL (70-100); HDL CHOLESTEROL 77 mg/dL; LDL CHOLESTEROL,CALCULATED 99 mg/dL; LDL/HDL RATIO 1.3 (<4.4); POTASSIUM 4.2 mmol/L (3.5-5.0); SODIUM 137 mmol/L (135-145); TOTAL PROTEIN 7.4 g/dL (6.7-8.2); TRIGLYCERIDES 186 mg/dL; VLDL CHOLESTEROL 37 mg/dL
[2021-05-22 08:29] LABS: MICROALBUMIN,URINE < 0.2 mg/dL (0-300.0)
[2021-05-22 08:36] LABS: THYROID STIMULATING HORMONE 1.4 uIU/mL (0.34-5.60)
[2021-05-22 11:09] LABS: ESTIMATED AVERAGE GLUCOSE 140 mg/dL (70-100); HEMOGLOBIN A1c% 6.5 % (4.27-6.07)
== END 2021-05-22 07:43 | disposition home or self-care (01) ==
LOC: LAB 07:42
PROVIDERS: ATTEND Internal Medicine
DX: E11.9 Type 2 diabetes mellitus without complications (principal); G62.9 Polyneuropathy, unspecified
CPT/HCPCS: 36415; 80053; 80061; 82043; 82570; 83036; 83721; 84443; 85025

== ENCOUNTER 2021-06-20 14:37 | Outpatient (CLI) | payer MEDICARE | END 2021-06-20 14:38 | disposition home or self-care (01) | LOC: RT 14:37 | PROVIDERS: ATTEND Obstetrics & Gynecology | DX: Z01.810 Encounter for preprocedural cardiovascular examination (principal) | CPT/HCPCS: 93005 ==

== ENCOUNTER 2021-06-21 16:27 | Outpatient (CLI) | payer MEDICARE | END 2021-06-21 16:28 | disposition home or self-care (01) | LOC: COV 16:27 | PROVIDERS: ATTEND Obstetrics & Gynecology | DX: Z01.812 Encounter for preprocedural laboratory examination (principal); Z20.822 Contact with and (suspected) exposure to COVID-19 ==

== ENCOUNTER 2021-07-04 14:50 | Outpatient (CLI) | payer MEDICARE | END 2021-07-04 14:51 | disposition home or self-care (01) | LOC: LAB 14:50 | PROVIDERS: ATTEND Internal Medicine | DX: N39.41 Urge incontinence (principal) | CPT/HCPCS: 87086 ==

== ENCOUNTER 2021-07-24 07:41 | Outpatient (CLI) | payer MEDICARE ==
--- NOTE | 2021-07-24 09:57 | Ultrasound Report ---
PROCEDURE: Pelvic w/Transvaginal INDICATIONS: Postmenopausal bleeding TECHNIQUE: Real-time scanning was performed of the pelvic organs, with image documentation. Additional endovagi nal scanning was necessary due to incomplete visualization of the adnexal and endometrial structures by transabdominal scanning. COMPARISON: MRI pelvis 05/01/2021 and pelvic ultrasound 01/05/2021. FINDINGS: Both the transabdominal abdominal and transvaginal images are limited by the presence of adjacent bow el gas. The uterine body measures 3.0 x 4.1 x 8.0 cm. There is a submucosal fibroid in the left anterior uter us measuring 1.4 x 1.2 x 1.3 cm (previously 1.8 x 1.8 x 1.9 cm on pelvic ultrasound from 12/18/2020). T here is another midline posterior uterine fibroid which appears to be intramural measuring 2.3 x 2.4 x 3.0 cm, previously measured at 1.5 x 1.5 x 1.8 cm. The endometrial stripe complex measures approxim ately 3 mm in double layer thickness. Both ovaries are normal in size and appearance. No or ovarian or adnexal mass. IMPRESSION: Two uterine fibroids identified sonographically on the current study. Please note that numerous uteri ne fibroids (probably greater than 10) are demonstrated on 05/01/2021 MRI. A submucosal fibroid in the left anterior uterus measures 1.4 x 1.3 x 1.2 cm, grossly similar to the pelvic MRI obtained 05/01/2021. An intramural midline posterior uterine fibroid measures approximately 2.4 x 2.3 x 3.0 cm, unchanged from the pelvic MRI 05/01/2021. Reviewed by: Rashid Christopher MD on 07/24/2021 9:56 AM PDT Approved by: Rashid Christopher MD on 07/24/2021 9:56 AM PDT Station ID: [id number]
== END 2021-07-24 07:42 | disposition home or self-care (01) ==
LOC: DI 07:41
PROVIDERS: ATTEND Obstetrics & Gynecology
DX: N95.0 Postmenopausal bleeding (principal); D25.1 Intramural leiomyoma of uterus; D25.0 Submucous leiomyoma of uterus

== ENCOUNTER 2022-09-03 14:44 | Outpatient (CLI) | payer MEDICARE ==
--- NOTE | 2022-09-03 21:23 | XRAY Report ---
PROCEDURE: Chest 2 View X-Ray INDICATIONS: UPPER RESPIRATORY INFECTION VIRAL TECHNIQUE: 2 views of the chest were acquired. COMPARISON: Chest radiographs 11/29/2018 FINDINGS: Surgical changes and devices: None. Lungs and pleura: No pleural effusions or pneumothorax. Lungs are clear. Mediastinum: Mediastinal contours are normal. Heart size is normal. Bones and chest wall: No suspicious bony abnormalities. Soft tissues appear unremarkable. IMPRESSION: No acute cardiopulmonary abnormality. Reviewed by: Jamarcus Smith MD on 09/03/2022 9:22 PM PST Approved by: Jamarcus Smith MD on 09/03/2022 9:22 PM [facility] [[email or web address] Station ID: [id number]
== END 2022-09-03 14:45 | disposition home or self-care (01) ==
LOC: DI 14:44
PROVIDERS: ATTEND Internal Medicine
DX: J06.9 Acute upper respiratory infection, unspecified (principal)

== ENCOUNTER 2022-10-24 07:58 | Outpatient (CLI) | payer MEDICARE ==
[2022-10-24 08:10] LABS: BASOPHILS # (AUTO) 0.1 10^3/uL (0.0-0.1); BASOPHILS % (AUTO) 0.8 %; EOSINOPHILS # (AUTO) 0.6 10^3/uL (0.0-0.7); EOSINOPHILS % (AUTO) 7.8 %; HCT - HEMATOCRIT 44.3 % (37.0-47.0); HGB - HEMOGLOBIN 14.5 g/dL (12.0-16.0); LYMPHOCYTES # (AUTO) 2.6 10^3/uL (1.5-3.5); LYMPHOCYTES % (AUTO) 32.5 %; MEAN CORPUSCULAR HEMOGLOBIN 29.5 pg (27.0-31.0); MEAN CORPUSCULAR HGB CONC 32.7 g/dL (32.0-36.0); MEAN CORPUSCULAR VOLUME 90.2 fL (81.0-99.0); MEAN PLATELET VOLUME 9.6 fL (7.9-10.8); MONOCYTES # (AUTO) 0.5 10^3/uL (0.0-1.0); MONOCYTES % (AUTO) 6.8 %; NEUTROPHILS # (AUTO) 4.1 10^3/uL (1.5-6.6); NEUTROPHILS % (AUTO) 51.3 %; PLT - PLATELET COUNT 270 10^3/uL (130-450); RED BLOOD COUNT 4.91 10^6/uL (4.20-5.40); RED CELL DISTRIBUTION WIDTH 12.6 % (12.0-15.0)
[2022-10-24 08:36] LABS: ALBUMIN 4.3 g/dL (3.2-5.5); ALBUMIN/GLOBULIN RATIO 1.5 (1.0-2.2); ALKALINE PHOSPHATASE 54 IU/L (42-121); ALT ALANINE AMINOTRANSFERASE 19 IU/L (10-60); AST ASPARTATE AMINOTRANSFERASE 23 IU/L (10-42); BILIRUBIN,TOTAL 0.8 mg/dL (0.2-1.0); BUN - BLOOD UREA NITROGEN 22 mg/dL (6-20); CALCIUM 9.2 mg/dL (8.5-10.3); CARBON DIOXIDE - CO2 29 mmol/L (21-32); CHLORIDE 98 mmol/L (101-111); CHOL/HDL RATIO 3.1 (<4.4); CHOLESTEROL 206 mg/dL; CREATININE 0.7 mg/dL (0.4-1.0); GFR - MDRD 83 (>89); GLUCOSE 123 mg/dL (70-100); HDL CHOLESTEROL 67 mg/dL; LDL CHOLESTEROL,CALCULATED 105 mg/dL; LDL/HDL RATIO 1.6 (<4.4); SODIUM 134 mmol/L (135-145); TOTAL PROTEIN 7.2 g/dL (6.7-8.2); TRIGLYCERIDES 168 mg/dL; VLDL CHOLESTEROL 34 mg/dL
[2022-10-24 08:52] LABS: CREATININE,URINE 32.8 mg/dL; MICROALBUM/CREATININE RATIO,UR 6.1 ug/mg (<30.0); MICROALBUMIN,URINE 0.2 mg/dL (0-300.0)
[2022-10-24 11:52] LABS: ESTIMATED AVERAGE GLUCOSE 140 mg/dL (70-100); HEMOGLOBIN A1c% 6.5 % (4.27-6.07)
== END 2022-10-24 07:59 | disposition home or self-care (01) ==
LOC: LAB 07:58
PROVIDERS: ATTEND Internal Medicine
DX: I10 Essential (primary) hypertension (principal); E78.5 Hyperlipidemia, unspecified; E11.9 Type 2 diabetes mellitus without complications
CPT/HCPCS: 36415; 80053; 80061; 82043; 82570; 83036; 83721; 85025

== ENCOUNTER 2023-01-28 07:46 | Outpatient (CLI) | payer MEDICARE ==
[2023-01-28 08:03] LABS: CALCIUM 9.1 mg/dL (8.5-10.3); CREATININE 0.8 mg/dL (0.4-1.0)
[2023-01-28 10:48] LABS: ESTIMATED AVERAGE GLUCOSE 134 mg/dL (70-100); HEMOGLOBIN A1c% 6.3 % (4.27-6.07)
== END 2023-01-28 07:47 | disposition home or self-care (01) ==
LOC: LAB 07:46
PROVIDERS: ATTEND Internal Medicine
DX: E11.9 Type 2 diabetes mellitus without complications (principal)
CPT/HCPCS: 36415; 80048; 83036

== ENCOUNTER 2023-09-09 07:59 | Outpatient (CLI) | payer MEDICARE ==
[2023-09-09 08:10] LABS: BASOPHILS # (AUTO) 0.1 10^3/uL (0.0-0.1); BASOPHILS % (AUTO) 1.1 %; EOSINOPHILS # (AUTO) 0.7 10^3/uL (0.0-0.7); EOSINOPHILS % (AUTO) 8.8 %; HCT - HEMATOCRIT 44.6 % (37.0-47.0); HGB - HEMOGLOBIN 14.2 g/dL (12.0-16.0); LYMPHOCYTES # (AUTO) 2.2 10^3/uL (1.5-3.5); LYMPHOCYTES % (AUTO) 28.7 %; MEAN CORPUSCULAR HEMOGLOBIN 28.7 pg (27.0-31.0); MEAN CORPUSCULAR HGB CONC 31.8 g/dL (32.0-36.0); MEAN CORPUSCULAR VOLUME 90.3 fL (81.0-99.0); MEAN PLATELET VOLUME 9.9 fL (7.9-10.8); MONOCYTES # (AUTO) 0.4 10^3/uL (0.0-1.0); MONOCYTES % (AUTO) 5.7 %; NEUTROPHILS # (AUTO) 4.1 10^3/uL (1.5-6.6); NEUTROPHILS % (AUTO) 55.3 %; PLT - PLATELET COUNT 260 10^3/uL (130-450); RED BLOOD COUNT 4.94 10^6/uL (4.20-5.40); RED CELL DISTRIBUTION WIDTH 12.6 % (12.0-15.0); WHITE BLOOD COUNT 7.5 x10^3/uL (4.8-10.8)
[2023-09-09 08:26] LABS: ALBUMIN 4.4 g/dL (3.2-5.5); ALKALINE PHOSPHATASE 58 IU/L (42-121); ALT ALANINE AMINOTRANSFERASE 16 IU/L (10-60); AST ASPARTATE AMINOTRANSFERASE 19 IU/L (10-42); BILIRUBIN,TOTAL 0.5 mg/dL (0.2-1.0); BUN - BLOOD UREA NITROGEN 13 mg/dL (6-20); CALCIUM 9.5 mg/dL (8.5-10.3); CARBON DIOXIDE - CO2 30 mmol/L (21-32); CHLORIDE 102 mmol/L (101-111); CHOL/HDL RATIO 2.7 (<4.4); CHOLESTEROL 173 mg/dL; CREATININE 0.7 mg/dL (0.6-1.3); CREATININE,URINE 34.3 mg/dL; GFR - MDRD 83 (>89); GLUCOSE 134 mg/dL (74-104); HDL CHOLESTEROL 64 mg/dL; LDL CHOLESTEROL,CALCULATED 69 mg/dL; LDL/HDL RATIO 1.1 (<4.4); POTASSIUM 4.2 mmol/L (3.5-4.5); SODIUM 139 mmol/L (135-145); TOTAL PROTEIN 6.6 g/dL (6.4-8.9); TRIGLYCERIDES 202 mg/dL (48-352); VLDL CHOLESTEROL 40 mg/dL
[2023-09-09 08:27] LABS: MICROALBUMIN,URINE < 0.7 mg/dL
[2023-09-09 10:28] LABS: ESTIMATED AVERAGE GLUCOSE 143 mg/dL (70-100); HEMOGLOBIN A1c% 6.6 % (4.27-6.07)
== END 2023-09-09 08:00 | disposition home or self-care (01) ==
LOC: LAB 07:59
PROVIDERS: ATTEND Internal Medicine
DX: E11.9 Type 2 diabetes mellitus without complications (principal); E78.5 Hyperlipidemia, unspecified; D25.9 Leiomyoma of uterus, unspecified
CPT/HCPCS: 36415; 80053; 80061; 82043; 82570; 83036; 83721; 85025

== ENCOUNTER 2024-01-12 08:09 | Outpatient (CLI) | payer MEDICARE ==
[2024-01-12 08:33] LABS: CALCIUM 9.6 mg/dL (8.5-10.3); CREATININE 0.7 mg/dL (0.6-1.3); POTASSIUM 4.4 mmol/L (3.5-4.5)
[2024-01-12 09:54] LABS: ESTIMATED AVERAGE GLUCOSE 146 mg/dL (70-100); HEMOGLOBIN A1c% 6.7 % (4.27-6.07)
== END 2024-01-12 08:10 | disposition home or self-care (01) ==
LOC: LAB 08:09
PROVIDERS: ATTEND Internal Medicine
DX: E11.9 Type 2 diabetes mellitus without complications (principal)
CPT/HCPCS: 36415; 80048; 83036

== ENCOUNTER 2024-07-08 08:02 | Outpatient (CLI) | payer MEDICARE ==
[2024-07-08 08:23] LABS: BASOPHILS # (AUTO) 0.1 10^3/uL (0.0-0.1); EOSINOPHILS # (AUTO) 0.8 10^3/uL (0.0-0.7); EOSINOPHILS % (AUTO) 12.1 %; HCT - HEMATOCRIT 42.4 % (37.0-47.0); HGB - HEMOGLOBIN 13.9 g/dL (12.0-16.0); LYMPHOCYTES # (AUTO) 2.1 10^3/uL (1.5-3.5); LYMPHOCYTES % (AUTO) 30.7 %; MEAN CORPUSCULAR HEMOGLOBIN 29.3 pg (27.0-31.0); MEAN CORPUSCULAR HGB CONC 32.8 g/dL (32.0-36.0); MEAN CORPUSCULAR VOLUME 89.5 fL (81.0-99.0); MEAN PLATELET VOLUME 9.6 fL (7.9-10.8); MONOCYTES # (AUTO) 0.4 10^3/uL (0.0-1.0); MONOCYTES % (AUTO) 5.4 %; NEUTROPHILS # (AUTO) 3.5 10^3/uL (1.5-6.6); NEUTROPHILS % (AUTO) 50.5 %; PLT - PLATELET COUNT 258 10^3/uL (130-450); RED BLOOD COUNT 4.74 10^6/uL (4.20-5.40); RED CELL DISTRIBUTION WIDTH 12.5 % (12.0-15.0); WHITE BLOOD COUNT 6.8 x10^3/uL (4.8-10.8)
[2024-07-08 08:39] LABS: CREATININE,URINE 59.1 mg/dL
[2024-07-08 08:39] LABS: ALBUMIN 4.4 g/dL (3.2-5.5); ALBUMIN/GLOBULIN RATIO 1.8 (1.0-2.2); ALKALINE PHOSPHATASE 50 IU/L (42-121); ALT ALANINE AMINOTRANSFERASE 14 IU/L (10-60); AST ASPARTATE AMINOTRANSFERASE 17 IU/L (10-42); BILIRUBIN,TOTAL 0.6 mg/dL (0.2-1.0); BUN - BLOOD UREA NITROGEN 16 mg/dL (6-20); CALCIUM 9.5 mg/dL (8.5-10.3); CARBON DIOXIDE - CO2 29 mmol/L (21-32); CHLORIDE 103 mmol/L (101-111); CHOL/HDL RATIO 2.4 (<4.4); CHOLESTEROL 163 mg/dL; CREATININE 0.7 mg/dL (0.6-1.3); GFR - MDRD 82 (>89); GLUCOSE 137 mg/dL (74-104); HDL CHOLESTEROL 67 mg/dL; LDL CHOLESTEROL,CALCULATED 63 mg/dL; LDL/HDL RATIO 0.9 (<4.4); SODIUM 139 mmol/L (135-145); TOTAL PROTEIN 6.8 g/dL (6.4-8.9); TRIGLYCERIDES 163 mg/dL; VLDL CHOLESTEROL 33 mg/dL
[2024-07-08 08:48] LABS: MICROALBUMIN,URINE < 0.7 mg/dL
[2024-07-08 09:12] LABS: THYROID STIMULATING HORMONE 1.02 uIU/mL (0.34-5.60)
[2024-07-08 09:44] LABS: ESTIMATED AVERAGE GLUCOSE 134 mg/dL (70-100); HEMOGLOBIN A1c% 6.3 % (4.27-6.07)
== END 2024-07-08 08:03 | disposition home or self-care (01) ==
LOC: LAB 08:02
PROVIDERS: ATTEND Internal Medicine
DX: E11.9 Type 2 diabetes mellitus without complications (principal); E78.5 Hyperlipidemia, unspecified; I10 Essential (primary) hypertension; F41.9 Anxiety disorder, unspecified; F32.A Depression, unspecified
CPT/HCPCS: 36415; 80053; 80061; 82043; 82570; 83036; 83721; 84443; 85025